=== PATIENT | female | born 1985 | race Hispanic/Latino ===

== ENCOUNTER 2017-04-17 14:07 | Emergency (ER) | payer OTHER ==
[2017-04-17 14:21] VITALS: RESP 18; TEMP 98.6; O2SAT 100
--- NOTE | 2017-04-17 15:23 | ED PDOC ---
HPI: General Adult Time Seen by Provider: 04/17/17 14:47 Chief Complaint (Nursing): Dizziness/Lightheaded Chief Complaint (Provider): Dizziness and dehydration History Per: Patient History/Exam Limitations: no limitations Onset/Duration Of Symptoms: Days Current Symptoms Are (Timing): Still Present Additional Complaint(s): 31 year old with a past medical history of small bowel syndrome who presents to the emergency department after she was sent by her primary care doctor for dehydration and sudden room-spinning dizziness since this morning when she woke up. Reports she saw doctor yesterday, 04/16/2017, who was worried that PICC line sight would be positive for deep vein thrombosis or a possible infection because area looked swollen. Patient states she has an active bowel movement ( last episode was purple) and empties colectomy bag every 3 hours. Denies fever, vomiting, syncope, and headache. Patient had a total of 5 bowel movements today , 04/17/2017. 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 Patient was admitted twice in the past. Last admission was on 01/08/2017 for sepsis under the care of Dr. Tesfaye Swanson MD. PMD: Dr. Noemi Pizano ([facility]) Past Medical History Reviewed: Historical Data, Nursing Documentation, Vital Signs Vital Signs: Last Vital Signs Temp 98.6 F 04/17/17 14:16 Pulse 88 04/17/17 14:16 Resp 18 04/17/17 14:16 BP 107/64 04/17/17 14:16 Pulse Ox 100 04/17/17 18:27 - Medical History PMH: Crohn's Disease, Chronic Kidney Disease Denies: HIV Other PMH: Small Bowel Syndrome - Surgical History Surgical History: Appendectomy, Cholecystectomy - Family History Family History: States: Unknown Family Hx - Social History Current smoker - smoking cessation education provided: No Alcohol: None Drugs: Denies - Home Medications Home Medications: Ambulatory Orders Medication Instructions Recorded 0.9 % Sodium Chloride [Normal 2,750 ml IV MWF 01/08/17 Saline Flush] ARIPiprazole [Abilify] 2 mg PO DAILY 01/11/17 Escitalopram [Lexapro] 10 mg PO DAILY 01/11/17 Albuterol HFA [Ventolin HFA 90 1 puff IH Q4 PRN #1 inhaler 01/13/17 mcg/actuation (8 g)] Benzonatate [Tessalon Perles] 100 mg PO TID PRN #15 sgl 01/13/17 Famotidine [Pepcid] 20 mg PO BID #20 tab 01/13/17 Sulfamethoxazole/Trimethoprim 260 mg IVPB Q12 #20 vial 01/13/17 [Bactrim Inj] Ondansetron ODT [Zofran ODT] 4 mg PO Q6 PRN #28 odt 01/14/17 Nitrofurantoin Macrocrystals 100 mg PO BID #14 cap 04/17/17 [Macrobid] - Allergies Allergies/Adverse Reactions: Allergies Allergy/AdvReac Type Severity Reaction Status Date / Time levofloxacin [From Levaquin] Allergy RASH Verified 04/17/17 14:21 morphine Allergy RASH Verified 04/17/17 14:21 tramadol Allergy RASH Verified 04/17/17 14:21 vancomycin Allergy RASH Verified 04/17/17 14:21 Review of Systems ROS Statement: Except As Marked, All Systems Reviewed And Found Negative (As per HPI, otherwise negative) Constitutional: Positive for: Other (Dehydration). Negative for: Fever Gastrointestinal: Positive for: Other (Active bowel movements). Negative for: Vomiting Neurological: Positive for: Dizziness (Sudden described as room-spinning). Negative for: Headache (or syncope) Physical Exam - Reviewed Nursing Documentation Reviewed: Yes Vital Signs Reviewed: Yes - Physical Exam Appears: Positive for: Well, Non-toxic, No Acute Distress Head Exam: Positive for: ATRAUMATIC, NORMAL INSPECTION, NORMOCEPHALIC Skin: Positive for: Normal Color, Warm, Dry Eye Exam: Positive for: Normal appearance, EOMI ENT: Positive for: Normal ENT Inspection. Negative for: Pharyngeal Erythema Neck: Positive for: Normal, Supple Cardiovascular/Chest: Positive for: Regular Rate, Rhythm. Negative for: Murmur Respiratory: Positive for: Normal Breath Sounds. Negative for: Accessory Muscle Use, Respiratory Distress Gastrointestinal/Abdominal: Positive for: Normal Exam (Scars around the abdomen and colectomy bag noted), Soft. Negative for: Tenderness, Other (No signs of redness or swelling around the colectomy bag.) Extremity: Positive for: Normal ROM, Other (Small area of erythema around sight of the PICC line insertion. ). Negative for: Tenderness, Pedal Edema, Swelling Neurologic/Psych: Positive for: Alert, Oriented (x3) - Laboratory Results Result Diagrams: 04/17/17 16:55 04/17/17 16:55 - ECG O2 Sat by Pulse Oximetry: 100 (RA) Pulse Ox Interpretation: Normal - Progress Re-evaluation Time: 18:25 Condition: Re-examined, Improved Medical Decision Making Medical Decision Making: Time: 1520 Initial Impression: Dehydration s/p Small Bowel Syndrome rule out deep vein thrombosis (DVT) Initial Plan: --BMP --CBC w/ diff --PTT & Prothrombin --Sodium Chloride 1L IV --Blood Culture and Urine Culture --Duplex Upper Extrm US --Reevaluation 16:54 Chest x-ray reviewed. Findings noted as follows: FINDINGS: LUNGS: The lungs are clear. PLEURA: No significant pleural effusion identified, no pneumothorax apparent. CARDIOVASCULAR: Normal. OSSEOUS STRUCTURES: No significant abnormalities. VISUALIZED UPPER ABDOMEN: Normal. OTHER FINDINGS: None. IMPRESSION: No active pulmonary disease. 17:04 Extremity ultrasound reviewed. Findings noted as follows: FINDINGS: Normal flow, compressibility and respiratory phasicity was observed in the right upper extremity deep veins. There is a hypoechoic thrombus within the right basilic vein with distention, loss of compressibility and absent flow. IMPRESSION: No evidence of deep venous thrombosis. Right basilic superficial thrombophlebitis. 17:10 Patient's condition remains stable. Lab results pending. Scribe~Attestation: Documented by Maria Isabel Morfin and Tess Paris, acting as scribes for Dayne Vickers MD. Provider Scribe~Attestation: All medical record entries made by the Scribe were at my direction and personally dictated by me. I have reviewed the chart and agree that the record accurately reflects my personal performance of the history, physical exam, medical decision making, and the department course for this patient. I have also personally directed, reviewed, and agree with the discharge instructions and disposition. Disposition - Clinical Impression Clinical Impression: Dizziness, Dehydration, Short gut syndrome, Status post ileostomy, Superficial thrombophlebitis, UTI (urinary tract infection) - Patient ED Disposition Is Patient to be Admitted: No Doctor Will See Patient In The: Office Counseled Patient/Family Regarding: Studies Performed, Diagnosis, Need For Followup - Disposition Referrals: Your, PCP [Other] Disposition: Routine/Home Disposition Time: 18:26 Condition: GOOD Additional Instructions: Take your medications as instructed. Follow up with your PCP in 2 days. Return for worsening. Prescriptions: Nitrofurantoin Macrocrystals [Macrobid] 100 mg PO BID #14 cap Instructions: Urinary Tract Infection in Women (ED), Superficial Thrombophlebitis (ED)
[2017-04-17] MEDS ORDERED: Sodium Chloride 0.9% 1,000 ML IV STA ×2 (15:26→16:25)
[2017-04-17 16:08] LABS: SQUAMOUS EPITHIAL 5 /hpf (0-5); URINE BACTERIA RARE (<OCC); URINE BILIRUBIN NEGATIVE (NEGATIVE); URINE BLOOD SMALL (NEGATIVE); URINE CLARITY CLOUDY (Clear); URINE COLOR STRAW (YELLOW); URINE GLUCOSE (UA) NEG (Normal); URINE LEUKOCYTE ESTERASE MOD Leu/uL (Negative); URINE NITRATE NEGATIVE (NEGATIVE); URINE PROTEIN NEGATIVE (NEGATIVE); URINE UROBILINOGEN 0.2-1.0 mg/dL (0.2-1.0)
--- NOTE | 2017-04-17 16:56 | RAD ---
HISTORY: Chest pain COMPARISON: 01/13/2017 FINDINGS: LUNGS: The lungs are clear. PLEURA: No significant pleural effusion identified, no pneumothorax apparent. CARDIOVASCULAR: Normal. OSSEOUS STRUCTURES: No significant abnormalities. VISUALIZED UPPER ABDOMEN: Normal. OTHER FINDINGS: None. IMPRESSION: No active pulmonary disease.
--- NOTE | 2017-04-17 17:02 | US ---
PROCEDURE: Right Upper Extremity Venous Doppler HISTORY: right arm pain sp picc line COMPARISON: None available. TECHNIQUE: Right extremity deep veins, including the lower internal jugular, subclavian, axillary and brachial veins, were evaluated flow, compressibility and respiratory phasicity. FINDINGS: Normal flow, compressibility and respiratory phasicity was observed in the right upper extremity deep veins. There is a hypoechoic thrombus within the right basilic vein with distention, loss of compressibility and absent flow. IMPRESSION: No evidence of deep venous thrombosis. Right basilic superficial thrombophlebitis.
[2017-04-17 17:13] LABS: BASO # 0.1 K/uL (0.0-0.2); BASO % 0.9 % (0.0-2.0); EOS # 0.2 K/uL (0.0-0.7); EOS % 1.4 % (0.0-4.0); HEMOGLOBIN 11.8 g/dL (12.0-16.0); LYMPH # 2.6 K/uL (1.0-4.3); LYMPH % 23.8 % (20.0-40.0); MEAN CELL VOLUME 93.9 fl (81.0-99.0); MEAN CORPUSCULAR HEMOGLOBIN 30.3 pg (27.0-31.0); MEAN CORPUSCULAR HGB CONC 32.3 g/dL (33.0-37.0); MEAN PLATELET VOLUME 7.9 fl (7.2-11.7); MONO # 0.7 K/uL (0.0-0.8); MONO % 6.7 % (0.0-10.0); NEUT # 7.4 K/uL (1.8-7.0); NEUT % 67.2 % (50.0-75.0); RBC 3.9 Mil/uL (3.80-5.20); WHITE BLOOD COUNT 10.9 K/uL (4.8-10.8)
[2017-04-17 17:21] LABS: CALCIUM 9.1 mg/dL (8.4-10.2)
[2017-04-17 17:36] LABS: PARTIAL THROMBOPLASTIN TIME 31.6 Seconds (25.6-37.1); PROTHROMBIN TIME 10.9 Seconds (9.8-13.1)
[2017-04-17 18:57] VITALS: BP 102/60; PULSE 82
--- NOTE | 2017-04-18 11:07 | CARD ---
APPROVED REPORT EKG Measurement Heart [id number] <Conclusion> Normal sinus rhythm Normal ECG
== END 2017-04-17 18:55 | disposition home or self-care (01) ==
LOC: H.ER 14:07
DX: N39.0 Urinary tract infection, site not specified (principal); I80.9 Phlebitis and thrombophlebitis of unspecified site; K50.90 Crohn's disease, unspecified, without complications; N18.9 Chronic kidney disease, unspecified; E86.0 Dehydration
CPT/HCPCS: 71045; 80048; 81003; 81025; 85025; 85610; 85730; 87040; 87086; 87181; 93005; 93971; 99284; J7040